=== PATIENT | female | born 1995 ===

== ENCOUNTER 2017-07-10 04:13 | Emergency (ER) | payer MEDICAID ==
[2017-07-10 04:33] VITALS: BP 121/73; PULSE 66; RESP 18; O2SAT 100
[2017-07-10 04:34] VITALS: TEMP 98.5
--- NOTE | 2017-07-10 04:42 | ED PDOC ---
HPI: Eye Injury/Pain Chief Complaint (Provider): Eye problem History Per: Patient History/Exam Limitations: no limitations Onset/Duration Of Symptoms: Days (x2), Worse Since (x2) Current Symptoms Are (Timing): Still Present Injury To Eye?: No Severity: Mild Associated Symptoms: Swelling, Discharge From Eye, Other (redness) Additional Complaint(s): Erika Jacob is a 22 year old female, with no past medical history, who presents to the emergency department complaining of redness to her right eye associated with discharge, swelling, and pain onset for 2 days. Patient reports symptoms have progressively worsen since then and she has pain looking to the right. She states yesterday she woke up with swelling in the upper eyelid and discharge, with nausea and vomit throughout the day. She reports the redness got significantly worst so she went to the eye doctor who told her she had subconjunctival hemorrhage and it was nothing to worry about. At this time patient reports she woke because her eye was hurting her. She noticed her swelling worsen in the mirror which prompted her visit to the ED. PMD: None provided. <Refugio Galloway - Last Filed: 07/10/17 04:35> <Gretchen Beyer - Last Filed: 07/10/17 05:16> Time Seen by Provider: 07/10/17 04:17 Chief Complaint (Nursing): Eye Problem Past Medical History Reviewed: Historical Data, Nursing Documentation, Vital Signs Vital Signs: Last Vital Signs Temp 98.5 F 07/10/17 04:34 Pulse 66 07/10/17 04:24 Resp 18 07/10/17 04:24 BP 121/73 07/10/17 04:24 Pulse Ox 100 07/10/17 04:24 - Medical History PMH: No Chronic Diseases - Family History Family History: States: Unknown Family Hx - Social History Current smoker - smoking cessation education provided: No Alcohol: None Drugs: Denies <Refugio Galloway - Last Filed: 07/10/17 04:35> Vital Signs: Last Vital Signs Temp 98.5 F 07/10/17 04:34 Pulse 66 07/10/17 04:24 Resp 18 07/10/17 04:24 BP 121/73 07/10/17 04:24 Pulse Ox 100 07/10/17 04:50 <Gretchen Beyer - Last Filed: 07/10/17 05:16> - Home Medications Home Medications: Ambulatory Orders Medication Instructions Recorded Clindamycin [Cleocin] 300 mg PO BID #14 cap 07/10/17 - Allergies Allergies/Adverse Reactions: Allergies Allergy/AdvReac Type Severity Reaction Status Date / Time No Known Allergies Allergy Verified 07/10/17 04:24 Review of Systems ROS Statement: Except As Marked, All Systems Reviewed And Found Negative Eyes: Positive for: Pain (looking to the right), Eyelid Inflammation (right upper eyelid swelling ), Redness, Other (discharge) Gastrointestinal: Positive for: Nausea, Vomiting <Refugio Galloway - Last Filed: 07/10/17 04:35> Physical Exam - Reviewed Nursing Documentation Reviewed: Yes Vital Signs Reviewed: Yes - Physical Exam Appears: Positive for: Well, Non-toxic, No Acute Distress Head Exam: Positive for: ATRAUMATIC, NORMAL INSPECTION, NORMOCEPHALIC Skin: Positive for: Normal Color, Warm, Dry Eye Exam: Positive for: Conjunctival injection (right eye), Other ( subconjunctival hemorrhage from 6 to midnight. Mild edema to upper eyelid) Neck: Positive for: Normal, Painless ROM, Supple Cardiovascular/Chest: Positive for: Regular Rate, Rhythm. Negative for: Murmur Respiratory: Positive for: Normal Breath Sounds. Negative for: Respiratory Distress Gastrointestinal/Abdominal: Positive for: Normal Exam, Bowel Sounds, Soft. Negative for: Tenderness Back: Positive for: Normal Inspection Extremity: Positive for: Normal ROM. Negative for: Pedal Edema, Deformity Neurologic/Psych: Positive for: Alert, Oriented <Refugio Galloway - Last Filed: 07/10/17 04:35> - ECG O2 Sat by Pulse Oximetry: 100 (RA) Pulse Ox Interpretation: Normal <Refugio Galloway - Last Filed: 07/10/17 04:35> Medical Decision Making Medical Decision Making: Initial Impression: Conjunctivitis and Subconjunctivitis hemorrhage Initial Plan: --cleocin 300 mg PO --reevaluation Scribe Attestation: Documented by Marko Gomes, acting as a scribe for Refugio Galloway MD Provider Scribe Attestation: All medical record entries made by the Scribe were at my direction and personally dictated by me. I have reviewed the chart and agree that the record accurately reflects my personal performance of the history, physical exam, medical decision making, and the department course for this patient. I have also personally directed, reviewed, and agree with the discharge instructions and disposition. <Refugio Galloway - Last Filed: 07/10/17 04:35> Disposition <Refugio Galloway - Last Filed: 07/10/17 04:35> - Patient ED Disposition Is Patient to be Admitted: No - Disposition Disposition: Routine/Home Disposition Time: 05:16 <Gretchen Beyer - Last Filed: 07/10/17 05:16> - Clinical Impression Clinical Impression: Conjunctivitis, Subconjunctival hemorrhage - Disposition Condition: STABLE Prescriptions: Clindamycin [Cleocin] 300 mg PO BID #14 cap Instructions: Subconjunctival Hemorrhage (ED), Conjunctivitis (ED) Forms: [facility] (Indonesian)
== END 2017-07-10 05:00 | disposition home or self-care (01) ==
LOC: H.ER 04:13
DX: H10.9 Unspecified conjunctivitis (principal); H11.31 Conjunctival hemorrhage, right eye

== ENCOUNTER 2017-07-11 18:13 | Inpatient (IN) | payer MEDICAID ==
[2017-07-11 18:27] VITALS: BMI 22.3
--- NOTE | 2017-07-11 18:44 | ED PDOC ---
HPI: Eye Injury/Pain Time Seen by Provider: 07/11/17 18:26 Chief Complaint (Nursing): Eye Problem Chief Complaint (Provider): Eye Pain History Per: Patient History/Exam Limitations: no limitations Onset/Duration Of Symptoms: Days (2x) Current Symptoms Are (Timing): Still Present Severity: Moderate Pain Scale Rating Of: 10 Associated Symptoms: Pain, Swelling, Discharge From Eye. denies: Decreased Vision, Itching Additional Complaint(s): 22 year old female with no pertinent medical history presents to the ED with complaints of worsening right eye pain that started 2x days ago. She reports being seen in the ED yesterday for the same complaint, where she was diagnosed with conjunctivitis and discharged home with a prescription for clindamycin. She reports taking it bidaily with no relief. She also reports taking ibuprofen 5x hours prior to arrival with no relief. She also reports having drainage ( clear, non bloody), nausea, and states that the eye pain worsens when there are lights on. She denies having fevers, chills, headaches. Of note: Patient reports going to her eye doctor earlier today, but he did not prescribe anything for the pain. PMD: Not provided. Past Medical History Reviewed: Historical Data, Nursing Documentation, Vital Signs Vital Signs: Last Vital Signs Temp 98.7 F 07/11/17 18:27 Pulse 59 L 07/11/17 18:27 Resp 20 07/11/17 18:27 BP 129/67 07/11/17 18:27 Pulse Ox 99 07/11/17 18:27 - Medical History PMH: No Chronic Diseases - Surgical History Surgical History: No Surg Hx - Family History Family History: States: No Known Family Hx - Social History Current smoker - smoking cessation education provided: No Alcohol: None Drugs: Denies - Home Medications Home Medications: Ambulatory Orders Medication Instructions Recorded No Known Home Med 07/11/17 - Allergies Allergies/Adverse Reactions: Allergies Allergy/AdvReac Type Severity Reaction Status Date / Time No Known Allergies Allergy Verified 07/10/17 04:24 Review of Systems ROS Statement: Except As Marked, All Systems Reviewed And Found Negative Eyes: Positive for: Pain Physical Exam - Reviewed Nursing Documentation Reviewed: Yes Vital Signs Reviewed: Yes - Physical Exam Appears: Positive for: Well, Non-toxic, In Acute Distress (mild painful distress ) Head Exam: Positive for: ATRAUMATIC, NORMOCEPHALIC Skin: Positive for: Normal Color, Warm, Dry Eye Exam: Positive for: EOMI (pain with extraoccular motion of the right eye), PERRL, Other (right lateral subconjunctival hemorrhage and edema) Respiratory: Positive for: Normal Breath Sounds. Negative for: Respiratory Distress Neurologic/Psych: Positive for: Alert, Oriented (3x) - Laboratory Results Result Diagrams: 07/11/17 19:30 07/11/17 19:30 - ECG O2 Sat by Pulse Oximetry: 99 (RA) Pulse Ox Interpretation: Normal Medical Decision Making Medical Decision Makin:26 Initial impression: 22 year old female with eye pain Initial plan: * CT orbits/ facial with contrast * CBC * CMP * IV NS 1,000ml IV 1,000mls/hr * reevaluation 20:00 Patient is vomiting (non-bilious, non bloody). Scribe Attestation: Documented by Neela Rendon, acting as a scribe for Cristal Schmidt PA-C. Provider Scribe Attestation: All medical record entries made by the Scribe were at my direction and personally dictated by me. I have reviewed the chart and agree that the record accurately reflects my personal performance of the history, physical exam, medical decision making, and the department course for this patient. I have also personally directed, reviewed, and agree with the discharge instructions and disposition. Disposition - Clinical Impression Clinical Impression: Preseptal cellulitis - Patient ED Disposition Is Patient to be Admitted: Yes Counseled Patient/Family Regarding: Diagnosis - Disposition Disposition Time: 21:48 Condition: GOOD Forms: [employer] (Azeri) - Pt Status Changed To: Hospital Disposition Of: Observation - Admit Certification Admit to Inpatient:: M/S - POA Present On Arrival: None
[2017-07-11] MEDS ORDERED: Sodium Chloride 0.9% 1,000 ML IV STA (19:14)
[2017-07-11 19:46] LABS: BASO % 0.4 % (0.0-2.0); EOS % 0.2 % (0.0-4.0); HEMATOCRIT 35.8 % (34.0-47.0); LYMPH # 1.5 K/uL (1.0-4.3); LYMPH % 13.4 % (20.0-40.0); MEAN CELL VOLUME 89.9 fl (81.0-99.0); MEAN CORPUSCULAR HEMOGLOBIN 30.9 pg (27.0-31.0); MEAN CORPUSCULAR HGB CONC 34.3 g/dL (33.0-37.0); MEAN PLATELET VOLUME 8.1 fl (7.2-11.7); MONO # 0.7 K/uL (0.0-0.8); MONO % 6.2 % (0.0-10.0); NEUT # 8.7 K/uL (1.8-7.0); NEUT % 79.8 % (50.0-75.0); RED CELL DISTRIBUTION WIDTH 13.1 % (11.5-14.5); WHITE BLOOD COUNT 10.9 K/uL (4.8-10.8)
[2017-07-11 19:54] LABS: ALB/GLOB RATIO 1.4 (1.0-2.1); ALKALINE PHOSPHATASE 90 U/L (38-126); ALT/SGPT 31 U/L (9-52); AST/SGOT 20 U/L (14-36); BILIRUBIN,TOTAL 0.5 mg/dl (0.2-1.3); BLOOD UREA NITROGEN 9 mg/dl (7-17); CALCIUM 9.8 mg/dL (8.4-10.2); CARBON DIOXIDE 23 mmol/L (22-30); CHLORIDE 100 mmol/L (98-107); GFR AFRICAN-AMERICAN > 60; GLUCOSE,RANDOM 108 mg/dL (65-105); POTASSIUM 3.9 MMOL/L (3.6-5.0); SODIUM 136 mmol/l (132-148); TOTAL PROTEIN 8.1 G/DL (6.3-8.2)
[2017-07-11] MEDS ORDERED: Iohexol 300 100 ML IJ ONE (20:08)
[2017-07-11] MEDS ORDERED: Sodium Chloride 0.9% 50 ML IV ONE (20:09)
--- NOTE | 2017-07-11 21:33 | CT ---
EXAM: CT Maxillofacial With Intravenous Contrast CLINICAL HISTORY: 22 years old, female; Pain and signs and symptoms; Mass, lump, or swelling; Other: Facial rt eye; Face pain; Patient HX: Rt side swelling/ rt eye discharged. Rt blurred vision. Non-trauma; Additional info: Right eye pain, pain with eom TECHNIQUE: Axial computed tomography images of the face with intravenous contrast. All CT scans at this facility use one or more dose reduction techniques, viz.: automated exposure control; ma/kV adjustment per patient size (including targeted exams where dose is matched to indication; i.e. head); or iterative reconstruction technique. Coronal and sagittal reformatted images were created and reviewed. CONTRAST: 98 mL of OMNIPAQUE administered intravenously. COMPARISON: No relevant prior studies available. FINDINGS: Bones/joints: No acute fracture. No definite cortical destruction. Soft tissues: Minimal RIGHT preseptal soft tissue swelling. No discrete fluid collection. Orbits: Apparent mild thickening sclera of RIGHT globe. No intra or extraconal fluid collection. Sinuses: Unremarkable. No air-fluid levels. IMPRESSION: 1. Mild inflammation about RIGHT orbit. No abscess.
[2017-07-11] MEDS ORDERED: Ampicillin/Sulbactam 1.5 gm Inj IVPB STA (21:47)
[2017-07-11] MEDS ORDERED: AMPICILLIN IVPB ONE (22:00)
[2017-07-11] MEDS ORDERED: SULBACTAM IVPB ONE (22:00)
[2017-07-11 22:24] VITALS: O2SAT 99
[2017-07-12] MEDS: Ampicillin/Sulbactam 1.5 GM in Sodium Chloride 0.9% 100 ML IVPB SCH ×3 (01:27→17:31)
[2017-07-12 08:04] LABS: BASO % 0.4 % (0.0-2.0); EOS # 0.1 K/uL (0.0-0.7); EOS % 0.5 % (0.0-4.0); HEMATOCRIT 30.8 % (34.0-47.0); LYMPH # 2.5 K/uL (1.0-4.3); LYMPH % 23.5 % (20.0-40.0); MEAN CORPUSCULAR HEMOGLOBIN 30.5 pg (27.0-31.0); MEAN CORPUSCULAR HGB CONC 33.8 g/dL (33.0-37.0); MEAN PLATELET VOLUME 8.3 fl (7.2-11.7); MONO # 0.9 K/uL (0.0-0.8); MONO % 8.4 % (0.0-10.0); NEUT # 7.3 K/uL (1.8-7.0); NEUT % 67.2 % (50.0-75.0); RED CELL DISTRIBUTION WIDTH 12.8 % (11.5-14.5); WHITE BLOOD COUNT 10.8 K/uL (4.8-10.8)
[2017-07-12 08:18] LABS: ALB/GLOB RATIO 1.3 (1.0-2.1); ALKALINE PHOSPHATASE 65 U/L (38-126); ALT/SGPT 30 U/L (9-52); AST/SGOT 18 U/L (14-36); BILIRUBIN,TOTAL 0.5 mg/dl (0.2-1.3); BLOOD UREA NITROGEN 8 mg/dl (7-17); CALCIUM 8.9 mg/dL (8.4-10.2); CARBON DIOXIDE 25 mmol/L (22-30); CHLORIDE 103 mmol/L (98-107); GFR AFRICAN-AMERICAN > 60; GLUCOSE,RANDOM 85 mg/dL (65-105); POTASSIUM 3.9 MMOL/L (3.6-5.0); SODIUM 138 mmol/l (132-148); TOTAL PROTEIN 6.3 G/DL (6.3-8.2)
[2017-07-12] MEDS: Dexamethasone/Tobramycin Ophth Susp OD SCH ×2 (12:27→17:31)
--- NOTE | 2017-07-12 12:50 | CP.PCM.HP ---
History of Present Illness - History of Present Illness History of Present Illness: This is a 22 y/o female with no significant medical hx was admitted last night for worsening of right eye pain associated with swelling and discharge. She was seen at the ER 2 days ago and was sent home on Clindamycin but to no avail. Her symptoms worsened and hence the ER eval. CT scan of the orbital area showed mild inflammation of the right orbit. She has no fever. Present on Admission - Present on Admission Any Indicators Present on Admission: No History of DVT/PE: No History of Uncontrolled Diabetes: No Urinary Catheter: No Decubitus Ulcer Present: No Past Patient History - Past Medical History & Family History Past Medical History?: No - Past Social History Smoking Status: Never Smoked - CARDIAC Hx Cardiac Disorders: No - PULMONARY Hx Respiratory Disorders: No - NEUROLOGICAL Hx Neurological Disorder: No - HEENT Hx HEENT Problems: No - RENAL Hx Chronic Kidney Disease: No - ENDOCRINE/METABOLIC Hx Endocrine Disorders: No - HEMATOLOGICAL/ONCOLOGICAL Hx Blood Disorders: No - INTEGUMENTARY Hx Dermatological Problems: No - MUSCULOSKELETAL/RHEUMATOLOGICAL Hx Musculoskeletal Disorders: No Hx Falls: No - GASTROINTESTINAL Hx Gastrointestinal Disorders: No - GENITOURINARY/GYNECOLOGICAL Hx Genitourinary Disorders: No - PSYCHIATRIC Hx Psychophysiologic Disorder: No - SURGICAL HISTORY Hx Surgeries: No - ANESTHESIA Hx Anesthesia: No Hx Anesthesia Reactions: No Meds Allergies/Adverse Reactions: Allergies Allergy/AdvReac Type Severity Reaction Status Date / Time No Known Allergies Allergy Verified 07/10/17 04:24 Physical Exam - Head Exam Head Exam: NORMAL INSPECTION - Eye Exam Eye Exam: Periorbital swelling Additional comments: injected conjunctiva right - ENT Exam ENT Exam: Mucous Membranes Moist - GI/Abdominal Exam GI & Abdominal Exam: Normal Bowel Sounds - Neurological Exam Neurological exam: CN II-XII Intact - Psychiatric Exam Psychiatric exam: Normal Affect Results - Vital Signs Recent Vital Signs: Last Vital Signs Temp 98.5 F 07/12/17 07:32 Pulse 60 07/12/17 07:32 Resp 18 07/12/17 07:32 BP 88/47 L 07/12/17 07:32 Pulse Ox 99 07/12/17 07:32 - Labs Result Diagrams: 07/12/17 06:00 07/12/17 06:00 Labs: Laboratory Results - last 24 hr 07/12/17 07/12/17 06:00 06:00 WBC 10.8 RBC 3.42 L Hgb 10.4 L Hct 30.8 L MCV 90.0 MCH 30.5 MCHC 33.8 RDW 12.8 Plt Count 223 MPV 8.3 Neut % (Auto) 67.2 Lymph % (Auto) 23.5 Vernon % (Auto) 8.4 Eos % (Auto) 0.5 Baso % (Auto) 0.4 Neut # 7.3 H Lymph # 2.5 Vernon # 0.9 H Eos # 0.1 Baso # 0.0 ESR 20 Sodium 138 Potassium 3.9 Chloride 103 Carbon Dioxide 25 Anion Gap 14 BUN 8 Creatinine 0.7 Est GFR ( Amer) > 60 Est GFR (Non-Af Amer) > 60 Random Glucose 85 Calcium 8.9 Total Bilirubin 0.5 AST 18 ALT 30 Alkaline Phosphatase 65 Total Protein 6.3 Albumin 3.6 Globulin 2.7 Albumin/Globulin Ratio 1.3 Assessment & Plan (1) Bacterial conjunctivitis of right eye Status: Acute (2) Preseptal cellulitis Status: Acute - Assessment and Plan (Free Text) Plan: Start IV antibiotics Ibuprofen tobradex eye drops.
[2017-07-12] MEDS: Dexamethasone/Tobramycin Ophth Susp OU SCH (21:10)
[2017-07-13] MEDS: Ampicillin/Sulbactam 1.5 GM in Sodium Chloride 0.9% 100 ML IVPB SCH ×2 (01:07→08:35)
[2017-07-13 07:19] VITALS: BP 97/62; PULSE 59; RESP 18; TEMP 98.6
[2017-07-13] MEDS: Dexamethasone/Tobramycin Ophth Susp OU SCH ×2 (08:32→12:51)
--- NOTE | 2017-07-13 10:24 | CP.PCM.DIS ---
Provider - Provider Date of Admission: 07/11/17 22:12 Attending physician: Reagan Cano MD Time Spent in preparation of Discharge (in minutes): 30 Diagnosis - Discharge Diagnosis (1) Bacterial conjunctivitis of right eye Status: Acute (2) Preseptal cellulitis Status: Acute Hospital Course - Lab Results Lab Results: Most Recent Lab Values WBC 10.8 K/uL (4.8-10.8) 07/12/17 06:00 RBC 3.42 Mil/uL (3.80-5.20) L 07/12/17 06:00 Hgb 10.4 g/dL (12.0-16.0) L 07/12/17 06:00 Hct 30.8 % (34.0-47.0) L 07/12/17 06:00 MCV 90.0 fl (81.0-99.0) 07/12/17 06:00 MCH 30.5 pg (27.0-31.0) 07/12/17 06:00 MCHC 33.8 g/dL (33.0-37.0) 07/12/17 06:00 RDW 12.8 % (11.5-14.5) 07/12/17 06:00 Plt Count 223 K/uL (130-400) 07/12/17 06:00 MPV 8.3 fl (7.2-11.7) 07/12/17 06:00 Neut % (Auto) 67.2 % (50.0-75.0) 07/12/17 06:00 Lymph % (Auto) 23.5 % (20.0-40.0) 07/12/17 06:00 Dickey % (Auto) 8.4 % (0.0-10.0) 07/12/17 06:00 Eos % (Auto) 0.5 % (0.0-4.0) 07/12/17 06:00 Baso % (Auto) 0.4 % (0.0-2.0) 07/12/17 06:00 Neut # 7.3 K/uL (1.8-7.0) H 07/12/17 06:00 Lymph # 2.5 K/uL (1.0-4.3) 07/12/17 06:00 Dickey # 0.9 K/uL (0.0-0.8) H 07/12/17 06:00 Eos # 0.1 K/uL (0.0-0.7) 07/12/17 06:00 Baso # 0.0 K/uL (0.0-0.2) 07/12/17 06:00 ESR 20 mm/hr (0-20) 07/12/17 06:00 Sodium 138 mmol/l (132-148) 07/12/17 06:00 Potassium 3.9 MMOL/L (3.6-5.0) 07/12/17 06:00 Chloride 103 mmol/L (98-107) 07/12/17 06:00 Carbon Dioxide 25 mmol/L (22-30) 07/12/17 06:00 Anion Gap 14 (10-20) 07/12/17 06:00 BUN 8 mg/dl (7-17) 07/12/17 06:00 Creatinine 0.7 mg/dL (0.7-1.2) 07/12/17 06:00 Est GFR ( Amer) > 60 07/12/17 06:00 Est GFR (Non-Af Amer) > 60 07/12/17 06:00 Random Glucose 85 mg/dL (65-105) 07/12/17 06:00 Calcium 8.9 mg/dL (8.4-10.2) 07/12/17 06:00 Total Bilirubin 0.5 mg/dl (0.2-1.3) 07/12/17 06:00 AST 18 U/L (14-36) 07/12/17 06:00 ALT 30 U/L (9-52) 07/12/17 06:00 Alkaline Phosphatase 65 U/L (38-126) 07/12/17 06:00 Total Protein 6.3 G/DL (6.3-8.2) 07/12/17 06:00 Albumin 3.6 g/dL (3.5-5.0) 07/12/17 06:00 Globulin 2.7 gm/dL (2.2-3.9) 07/12/17 06:00 Albumin/Globulin Ratio 1.3 (1.0-2.1) 07/12/17 06:00 - Hospital Course Hospital Course: This is a 22 y/o female who developed a red eye right for the past few days associated with pain and purulent discharge. She was seen at the ER and was given meds but sx worsened hence on reeval she was admitted. CT scan of the right orbit showed mild inflammation of the right orbit but no abscess. She was started on IV Unasyn and NSAID's and started on Tobradex. Optha consult was sought and suggested Tobradex and outpatient follow up. She was discharged in stable condition and advised follow up in 1 week. Discharge Exam - Head Exam Head Exam: NORMAL INSPECTION - Eye Exam Eye Exam: Normal appearance Additional comments: injected conjunctiva right - Respiratory Exam Respiratory Exam: NORMAL BREATHING PATTERN - Cardiovascular Exam Cardiovascular Exam: REGULAR RHYTHM - GI/Abdominal Exam GI & Abdominal Exam: Normal Bowel Sounds - Neurological Exam Neurological exam: CN II-XII Intact, Oriented x3 - Psychiatric Exam Psychiatric exam: Normal Mood Discharge Plan - Follow Up Plan Condition: GOOD Disposition: HOME/ ROUTINE Additional Instructions: Rx given follow up in 1 week ryan pierce
== END 2017-07-13 13:40 | disposition home or self-care (01) | DRG 46 ==
LOC: H.ER 18:13 → H.ERHOLD 22:12 → H.MEDSURG1 22:49
PROVIDERS: ADMIT Family Medicine; ATTEND Family Medicine
DX: H10.89 Other conjunctivitis (principal); L03.213 Periorbital cellulitis